=== PATIENT | male | born 2000 | race Caucasian/White ===

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

== ENCOUNTER 2022-06-14 22:43 | Emergency (ER) | payer OTHER, SELFPAY ==
[2022-06-14 22:47] VITALS: BP 151/79; PULSE 107; RESP 14; TEMP 37.2; O2SAT 100
--- NOTE | 2022-06-14 23:37 | ED.PSYCH ---
HPI - Psych General Chief Complaint: Psychiatric Symptoms <Doris Salter PA-C - Last Filed: 06/15/22 04:14> Stated Complaint: psych symptoms <Doris Salter PA-C - Last Filed: 06/15/22 04:14> Time Seen by Provider: 06/14/22 23:25 <Doris Salter PA-C - Last Filed: 06/15/22 04:14> Source: patient and family <Doris Salter PA-C - Last Filed: 06/15/22 04:14> Mode of arrival: ambulatory <Doris Salter PA-C - Last Filed: 06/15/22 04:14> Limitations: no limitations <Doris Salter PA-C - Last Filed: 06/15/22 04:14> History of Present Illness HPI Narrative: This is a 22 year old male that presents to the ER for thoughts of harming himself. Reports he hears voices in his head to harm himself. He has had psychiatric issues since a young child. He smokes marijuana to help with this. He reports previous psychiatric hospitalization. He has not been on any psychiatric medications recently. He is unable to sleep. <Doris Salter PA-C - Last Filed: 06/15/22 04:14> Related Data Allergies/Adverse Reactions: Allergies Allergy/AdvReac Type Severity Reaction Status Date / Time rifampin Allergy Unknown Verified 06/15/22 00:13 <Doris Salter PA-C - Last Filed: 06/15/22 04:14> Review of Systems Review of Systems: CONSTITUTIONAL: Denies fever PSYCHIATRIC: Reports anxiety and depression. <Doris Salter PA-C - Last Filed: 06/15/22 04:14> All systems reviewed & are unremarkable except as noted in HPI and below <Doris Salter PA-C - Last Filed: 06/15/22 04:14> [facility] Surgical History Surgical History: Surgical History (Updated 06/14/22 @ 23:39 by Doris Salter PA-C) History of myringotomy <Doris Salter PA-C - Last Filed: 06/15/22 04:14> Social History Social History: Social History Substance use type: marijuana and opiates <Doris Salter PA-C - Last Filed: 06/15/22 04:14> Exam Narrative: GENERAL: Well-appearing, well-nourished, and in no acute distress. HEAD: Normocephalic, atraumatic. EYES: EOMI. EXTREMITIES: Normal range of motion. No edema. SKIN: Warm, dry, no rash. NEURO: No focal deficits. Alert and oriented x3. PSYCH: Poor eye contact. Depressed mood and affect <Doris Salter PA-C - Last Filed: 06/15/22 04:14> Course Course Emergency Course: 02:20 Patient is medically cleared 04:00 Patient evaluated by crisis. Will be a voluntary placement <Doris Salter PA-C - Last Filed: 06/15/22 04:14> 02:20 Patient is medically cleared 04:00 Patient evaluated by crisis. Will be a voluntary placement Essie was reevaluated the patient and is determined that the patient is safe to safety plan and have outpatient follow-up <Michael Raza MD - Last Filed: 06/15/22 05:16> Vital Signs Vital signs: Vital Signs Temperature 37.2 C 06/14/22 22:47 Pulse Rate 107 H 06/14/22 22:47 Respiratory Rate 14 06/14/22 22:47 Blood Pressure 151/79 H 06/14/22 22:47 Pulse Oximetry 100 06/14/22 22:47 Oxygen Delivery Room Air 06/14/22 22:47 Temperature 37.2 C 06/14/22 22:47 Pulse Rate 107 H 06/14/22 22:47 Respiratory Rate 14 06/14/22 22:47 Blood Pressure 151/79 H 06/14/22 22:47 Pulse Oximetry 100 06/14/22 22:47 Oxygen Delivery Room Air 06/14/22 22:47 <Doris Salter PA-C - Last Filed: 06/15/22 04:14> Vital Signs Temperature 37.2 C 06/14/22 22:47 Pulse Rate 107 H 06/14/22 22:47 Respiratory Rate 14 06/14/22 22:47 Blood Pressure 151/79 H 06/14/22 22:47 Pulse Oximetry 100 06/14/22 22:47 Oxygen Delivery Room Air 06/14/22 22:47 Temperature 37.2 C 06/14/22 22:47 Pulse Rate 107 H 06/14/22 22:47 Respiratory Rate 14 06/14/22 22:47 Blood Pressure 151/79 H 06/14/22 22:47 Pulse Oximetry 100 06/14/22 22:47 Oxygen Delivery Room Air 06/14/22 22:47 <Michael Raza MD - Last Filed: 06/15/22 05:16> MDM - Psych MDM Narrati
--- NOTE | 2022-06-15 00:16 | PC.NURSE ---
patient sitting on bed during nursing assessment. 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 patient states that schizoprenia runs in his family and that his mother has been dx in the past. patient then changed his story and states i was wrong, it is my dad's voices I can hear. He is the one that schizophrenic . at times, patient would stare into space and then say i know that i am out of it . mother was in the room when casualty underwriter entered. casualty underwriter asked who she was to the patient. she repeated x4 i am no one . casualty underwriter asked for her to state her relationship and step out of the room while assessment was taking place per patient request. once mother was out of the room, patient states I feel as if I can just switch my identity when she leaves . patient refusing to give urine specimen at this time. he was cooperative with blood draw and COVID testing. mother brought back in room with patient
[2022-06-15 00:43] LABS: Basophils Absolute Auto 0.1 K/mm3 (0.0-0.1); Basophils Percent Auto 0.5 % (0.2-1.2); Hematocrit 44.8 % (42.0-52.0); Hemoglobin 15.7 g/dL (14.0-18.0); Immature Granulocyte Absolute 0.01 K/mm3 (0.00-0.031); Immature Granulocyte Percent A 0.1 % (0-0.5); Lymphocytes Absolute Auto 0.85 K/mm3 (0.9-3.2); Lymphocytes Percent Auto 9.1 % (18.3-44.2); Mean Corpuscular Hemoglobin 31.3 pg (26-34); Mean Corpuscular Volume 89.2 fl (80-100); Mean Platelet Volume 10.8 fl (7.4-10.4); Monocytes Absolute Auto 0.6 K/mm3 (0.1-0.6); Monocytes Percent Auto 6.2 % (2.6-8.5); Neutrophils Absolute Auto 7.8 K/mm3 (1.3-6.7); Neutrophils Percent Auto 84.1 % (45.5-73.1); Platelet Count Result 267 k/mm3 (150-375); Red Blood Count 5.02 M/mm3 (4.6-6.20); Red Cell Distribution Width 11.5 % (11.5-14.5); White Blood Count 9.3 K/mm3 (4.5-10.0)
[2022-06-15 00:52] LABS: Alanine Aminotransferase 27 U/L (6-50); Albumin Level 5.1 g/dL (3.5-5.1); Alkaline Phosphatase 80 U/L (38-126); Anion Gap 19 mmol/L (8-16); Aspartate Amino Transferase 26 U/L (17-59); Blood Urea Nitrogen 11 mg/dL (9-20); Carbon Dioxide 23 mmol/L (22-30); Chloride 100 mmol/L (98-107); Estimated Glomerular Filt Rate > 60; Glucose 128 mg/dL (65-110); Potassium 3.8 mmol/L (3.4-5.0); Sodium 142 mmol/L (137-145)
[2022-06-15 00:53] LABS: Ethanol < 10 mg/dL (<10)
[2022-06-15 01:39] LABS: SARS-CoV-2 RNA PCR Positive
[2022-06-15 02:06] LABS: Amphetamine Screen Urine Negative (Negative); Barbiturate Screen Urine Negative (Negative); Benzodiazepines Screen Urine Negative (Negative); Cannabinoid Screen Urine Positive (Negative); Cocaine Screen Urine Negative (Negative); Methadone Screen Urine Negative (Negative); Opiate Screen Urine Negative (Negative); Phencyclidine Screen Urine Negative (Negative)
[2022-06-15 02:14] LABS: Add Urine Microscopic? YES; Appearance Urine Cloudy (Clear); Bilirubin Urine Negative (Negative); Blood Urine Negative (Negative); Color Urine Amber (Yellow); Glucose Urine UA Negative (Negative); Ketones Urine 2+ mg/dL (Negative); Leukocyte Esterase Ur Negative LEU/UL (Negative); Mucus Urine Moderate /lpf; Nitrate Urine Negative (Negative); Protein Urine 1+ mg/dL (Negative); RBC Urine 0-2 /hpf (0-2); Squamous Epithelial Cell Urine Rare /hpf (Few); WBC Urine 0-3 /hpf
[2022-06-15 02:16] LABS: Specific Grav Ur 1.034 (1.001-1.035)
== END 2022-06-15 05:45 | disposition home or self-care (01) ==
PROVIDERS: Physician Assistant; Emergency Provider Emergency Medicine
DX: F19.10 Other psychoactive substance abuse, uncomplicated (principal); F32.9 Major depressive disorder, single episode, unspecified; U07.1 COVID-19
CPT/HCPCS: 36415; 80053; 80307; 81001; 84443; 85025; 99284; U0003; U0005

== ENCOUNTER 2023-08-13 15:55 | Emergency (ER) | payer OTHER, SELFPAY ==
[2023-08-13 15:58] VITALS: BP 133/93; PULSE 69; RESP 100; TEMP 36.6; O2SAT 100
[2023-08-13 16:07] LABS: Basophils Absolute Auto 0.1 K/mm3 (0.0-0.1); Basophils Percent Auto 0.9 % (0.2-1.2); Eosinophils Absolute Auto 0.1 K/mm3 (0-0.3); Eosinophils Percent Auto 0.9 % (0-4.4); Hematocrit 51.5 % (42.0-52.0); Hemoglobin 17.3 g/dL (14.0-18.0); Immature Granulocyte Absolute 0.04 K/mm3 (0.00-0.031); Immature Granulocyte Percent A 0.5 % (0-0.5); Lymphocytes Absolute Auto 1.43 K/mm3 (0.9-3.2); Lymphocytes Percent Auto 17.7 % (18.3-44.2); Mean Corpuscular HGB Conc 33.6 g/dl (32-36); Mean Corpuscular Hemoglobin 31.1 pg (26-34); Mean Corpuscular Volume 92.6 fl (80-100); Mean Platelet Volume 10.7 fl (7.4-10.4); Monocytes Absolute Auto 0.9 K/mm3 (0.1-0.6); Monocytes Percent Auto 10.9 % (2.6-8.5); Neutrophils Absolute Auto 5.6 K/mm3 (1.3-6.7); Neutrophils Percent Auto 69.1 % (45.5-73.1); Platelet Count Result 251 k/mm3 (150-375); Red Blood Count 5.56 M/mm3 (4.6-6.20); Red Cell Distribution Width 11.5 % (11.5-14.5); White Blood Count 8.1 K/mm3 (4.5-10.0)
[2023-08-13 16:10] LABS: Appearance Urine Clear (Clear); Bilirubin Urine Negative (Negative); Blood Urine Negative (Negative); Color Urine Yellow (Yellow); Glucose Urine UA Negative (Negative); Ketones Urine Trace mg/dL (Negative); Leukocyte Esterase Ur Negative LEU/UL (Negative); Nitrate Urine Negative (Negative); Protein Urine Negative (Negative); Specific Grav Ur 1.011 (1.001-1.035); Urobilinogen Urine 0.2 mg/dL (<2.0)
[2023-08-13 16:11] LABS: Add Urine Microscopic? NO
--- NOTE | 2023-08-13 16:16 | PC.NURSE ---
Officer Jason Crawford with [employer] [facility] spoke with this RN concerning pt involuntary petition. Office Yvette states PD called to pts home by pts mother and sister. Who report tlhat pt voiced he was going to get in his car wrap it around a pole to kill himself. He became angry with mother threaten to cut her up in pieces tie her to concrete blocks and drop her in the river. Pt reports to RN that when he tries to sleep he hears unborn baby crying and his thoughts keep him from sleeping.
[2023-08-13 16:20] LABS: Alanine Aminotransferase 22 U/L (6-50); Albumin Level 5.2 g/dL (3.5-5.1); Alkaline Phosphatase 77 U/L (38-126); Anion Gap 16 mmol/L (8-16); Aspartate Amino Transferase 28 U/L (17-59); Bilirubin,Total 1.4 mg/dL (0.2-1.3); Blood Urea Nitrogen 16 mg/dL (9-20); Calcium 10.3 mg/dL (8.4-10.2); Carbon Dioxide 24 mmol/L (22-30); Chloride 98 mmol/L (98-107); Estimated CRCL calculation 87 ml/min; Estimated Glomerular Filt Rate > 60; Glucose 132 mg/dL (65-110); Potassium 4.4 mmol/L (3.4-5.0); Sodium 138 mmol/L (137-145)
[2023-08-13 16:32] LABS: Ethanol < 10 mg/dL (<10)
[2023-08-13 16:44] LABS: Influenza A QL RT-PCR Negative (Negative); Influenza B QL RT-PCR Negative (Negative); RSV RNA, RT-PCR Negative (Negative); SARS-CoV-2 RNA PCR Negative (Negative)
[2023-08-13 16:48] LABS: Barbiturate Screen Urine Negative (Negative); Benzodiazepines Screen Urine Negative (Negative)
[2023-08-13 16:54] LABS: Amphetamine Screen Urine Negative (Negative); Cannabinoid Screen Urine Positive (Negative); Cocaine Screen Urine Negative (Negative); Methadone Screen Urine Negative (Negative); Opiate Screen Urine Negative (Negative); Phencyclidine Screen Urine Negative (Negative)
--- NOTE | 2023-08-13 17:11 | ED.PSYCH ---
HPI - Psych General Chief Complaint: Psychiatric Symptoms <Angelo Leslie MD - Last Filed: 08/13/23 20:43> Stated Complaint: SI <Angelo Leslie MD - Last Filed: 08/13/23 20:43> Time Seen by Provider: 08/13/23 15:59 <Angelo Leslie MD - Last Filed: 08/13/23 20:43> History of Present Illness HPI Narrative: Patient is a 23-year-old male who presents ER by EMS after police were contacted by family due to concerning statements about mental health. He got in a fight with his mother and sister in told his mother that he could in her life by tapping her up and bring her in the river. He then said he was just going to wrap himself around telephone pole with his car in the month the home. He was speeding through her neighbor heads were children were playing and police pulled him over and brought him here for further psychiatric evaluation. Patient reports that he has had mental health issues related to getting his girlfriend who then left him and then also losing his job in the [employer] at [facility] [employer]. He was hospitalized just 2 weeks ago for his mental health a [facility]. <Angelo Leslie MD - Last Filed: 08/13/23 20:43> Related Data Allergies/Adverse Reactions: Allergies Allergy/AdvReac Type Severity Reaction Status Date / Time rifampin Allergy Unknown Verified 08/13/23 16:24 <Angelo Leslie MD - Last Filed: 08/13/23 20:43> Review of Systems Review of Systems: All systems reviewed & are unremarkable except as noted in HPI and below <Angelo Leslie MD - Last Filed: 08/13/23 20:43> Constitutional: Constitutional: Reports no additional constitutional complaints <Angelo Leslie MD - Last Filed: 08/13/23 20:43> ENT: Reports system reviewed and no additional complaints, except as documented <Angelo Leslie MD - Last Filed: 08/13/23 20:43> Cardiovascular: Cardiovascular: Reports no additional cardiovascular complaints <Angelo Leslie MD - Last Filed: 08/13/23 20:43> Respiratory: Respiratory: Reports no additional respiratory complaints <Angelo Leslie MD - Last Filed: 08/13/23 20:43> Gastrointestinal: Gastrointestinal: Reports no additional gastrointestinal complaints <Angelo Leslie MD - Last Filed: 08/13/23 20:43> Psychiatric: Psychiatric: Reports no additional psychiatric complaints <Angelo Leslie MD - Last Filed: 08/13/23 20:43> PMFSH Surgical History Surgical History: Surgical History (Updated 06/14/22 @ 23:39 by Doris Salter PA-C) History of myringotomy <Angelo Leslie MD - Last Filed: 08/13/23 20:43> Social History Social History: Social History Substance use type: marijuana <Angelo Leslie MD - Last Filed: 08/13/23 20:43> Exam Narrative: GENERAL: Well-appearing, well-nourished, and in no acute distress. HEAD: Normocephalic, atraumatic. ENT: Mucous membranes moist. NECK: Supple. CHEST: Clear to auscultation. No respiratory distress. HEART: Regular rate and rhythm. Normal peripheral pulses. ABDOMEN: Soft, nontender, nondistended, normal active bowel sounds. EXTREMITIES: Normal range of motion. No edema. SKIN: Warm, dry, no rash. NEURO: Alert and oriented x3. PSYCH: Tearful and anxious, depressed mood. Denies SI/HI despite previous statements to family. <Angelo Leslie MD - Last Filed: 08/13/23 20:43> Course Course Emergency Course: 1700: Patient medically cleared to be seen by crisis. No interventions required at this time. <Angelo Leslie MD - Last Filed: 08/13/23 20:43> Vital Signs Vital signs: Vital Signs Temperature 97.8 F 08/13/23 15:58 Pulse Rate 69 08/13/23 15:58 Respiratory Rate 100 H 08/13/23 15:58 Blood Pressure 133/93 H 08/13/23 15:58 Pulse Oximetry 100 08/13/23 15:58 Oxygen Delivery Room Air 08/13/23 15:58 Temperature 98.6 F 08/14/23 06:26 Pulse Rate 70 08/14/23 06:26 Respiratory Rate 14 08/14/23
--- NOTE | 2023-08-13 17:32 | PC.NURSE ---
[id number] - RN called [facility] spoke with Amberly. Crisis counselor to be here within an hour
--- NOTE | 2023-08-13 19:15 | PC.NURSE ---
report given to Al MEJIA
--- NOTE | 2023-08-13 19:18 | PC.NURSE ---
Assumed care of pt from ROBERTO Garcia at this time.
--- NOTE | 2023-08-13 22:04 | ECG_ITS ---
Measurements Intervals [place] Rate: 56 P: 69 [place]: 146 QRS: 72 QRSD: 89 T: 50 QT: 399 QTc: 385 Interpretive Statements SINUS BRADYCARDIA WITH SINUS ARRHYTHMIA COMPARED TO ECG 12/28/2021 00:13:54 SINUS ARRHYTHMIA NOW PRESENT Electronically Signed On 08-14-2023 15:55:53 [facility] [address] TUTOR by Larisa Alvarez M.D.
--- NOTE | 2023-08-13 22:15 | PC.NURSE ---
Nellie called this RN and stated pt insurance could not be verified. This RN asked pt if he would be willing to pay $5,000 out of pocket per nellie request, which he denied.
--- NOTE | 2023-08-13 23:28 | PC.NURSE ---
Pt accepted at [facility]. Accepting physician is Dr. Pastor. Report given to ROBERTO Berumen. Transport being set up. Pt to arrive after 0800 08/14. Mother contacted by this RN and updated on pt status. Mother phone number: [phone]
--- NOTE | 2023-08-14 03:37 | PC.NURSE ---
Chan to be here around 0700 to xfr pt to [facility].
[2023-08-14 03:44] VITALS: BP 128/87; PULSE 68; RESP 16; O2SAT 100
--- NOTE | 2023-08-14 06:19 | PC.NURSE ---
0610 - [facility] called and stated they were no longer able to make trip today, but could schedule transport for 0630 on 08/15. Yasmin, [facility] [place] scheduled transport for then. [facility] corporate legal secretary contacted [place] who declined trip. [facility] contacted and will call back around 0800 after speaking with product communications manager.
[2023-08-14 06:26] VITALS: BP 122/79; PULSE 70; RESP 14; TEMP 37; O2SAT 99
--- NOTE | 2023-08-14 07:11 | PC.NURSE ---
Report given to ROBERTO Valiente at this time.
[2023-08-14 11:43] VITALS: BP 117/77; PULSE 110; RESP 18; TEMP 36.9; O2SAT 100
--- NOTE | 2023-08-14 11:44 | PC.NURSE ---
Pt resting from [id number], pt refused breakfast tray and states he does not want any food at this time.
== END 2023-08-14 12:45 ==
PROVIDERS: Emergency Medicine; Emergency Provider Student in an Organized Health Care Education/Training Program
DX: Z04.6 Encounter for general psychiatric examination, requested by authority (principal); Z20.822 Contact with and (suspected) exposure to COVID-19
CPT/HCPCS: 36415; 80053; 80307; 81003; 84443; 85025; 87637; 93005; 99285